=== PATIENT | male | born 1970 | race Caucasian/White ===

== ENCOUNTER 2018-07-22 10:30 | Emergency (ER) | payer OTHER ==
[~2018-07-22] VITALS: Ht 175.3 cm; Wt 147.0 kg
[~2018-07-22 10:30] MED LIST: CICLODAN 0.77%544 GM; LOTREL 5-20 MG1 CAP; SYNTHROID88 MCG; TORSEMIDE10 MG; ZEASORB; ZIAC 2.5-6.25 M1 TAB
[2018-07-22] MEDS ORDERED: AVAPRO300 MG (10:53)
[2018-07-22] MEDS ORDERED: TOPROL XL50 M1 (10:54)
[2018-07-22] MEDS ORDERED: HYDROCHLOROTHIA25 MG (10:54)
[2018-07-22] MEDS ORDERED: TOPROL XL25 M1 (10:54)
[2018-07-22] MEDS ORDERED: ZYRTEC10 MG PO (11:47)
== END 2018-07-22 12:32 | disposition home or self-care (01) ==
LOC: ER 10:30
DX: R22.0 Localized swelling, mass and lump, head (principal); H01.004 Unspecified blepharitis left upper eyelid